=== PATIENT | female | born 1990 | race American Indian/Alaskan Native ===

== ENCOUNTER 2020-05-25 13:00 | Outpatient (CLI) | payer OTHER | END 2020-05-25 13:48 | disposition home or self-care (01) | LOC: NST 13:00 | PROVIDERS: ATTEND Obstetrics & Gynecology Maternal & Fetal Medicine | DX: Z34.83 Encounter for supervision of other normal pregnancy, third trimester (principal) ==

== ENCOUNTER 2020-07-18 13:30 | Inpatient (IN) | payer OTHER ==
[~2020-07-18] VITALS: Ht 172.7 cm; Wt 86.2 kg
[2020-08-02] MEDS ORDERED: PRENATAL TABLE1 EAC1 (09:04)
== END 2020-08-04 13:09 | disposition home or self-care (01) | DRG 768 ==
LOC: LDR 08-02 08:29 → SURG-SUITE 08-02 16:40 → OB/GYN 08-03 13:30 → SURG-SUITE 08-04 13:09
PROVIDERS: ADMIT Obstetrics & Gynecology; ATTEND Obstetrics & Gynecology
PROC: 10E0XZZ Delivery of Products of Conception, External Approach (ICD-10-PCS; principal; 2020-08-02)
PROC: 0DQR0ZZ Repair Anal Sphincter, Open Approach (ICD-10-PCS; 2020-08-02)
PROC: 0W8NXZZ Division of Female Perineum, External Approach (ICD-10-PCS; 2020-08-02)
PROC: 4A1HXFZ Monitoring of Products of Conception, Cardiac Rhythm, External Approach (ICD-10-PCS; 2020-08-02)
DX: O70.20 Third degree perineal laceration during delivery, unspecified (principal); Z37.0 Single live birth; Z3A.39 39 weeks gestation of pregnancy; Z20.822 Contact with and (suspected) exposure to COVID-19